=== PATIENT | female | born 1965 ===

== ENCOUNTER 2021-05-08 12:22 | Emergency (ER) | payer SELFPAY ==
[2021-05-08 13:58] VITALS: BP 134/76
--- NOTE | 2021-05-08 17:26 | Emergency Department Report ---
ED Female HPI - General Chief complaint: Vaginal Bleeding Stated complaint: HEAVY BLEEDING Time Seen by Provider: 05/08/21 15:32 Source: patient Mode of arrival: Ambulatory Limitations: No Limitations - History of Present Illness Initial comments: Patient is a 55-year-old female presents emergency room points of vaginal bleeding that began 2 days ago. She states that she is changing her pad every hour. She states that she last saw an HAIR SPECIALIST approximately a year ago. She states that she has a past medical history of fibroids. She states that she went through menopause 4 years ago and has not had any bleeding since then. She denies any fever, nausea, vomiting, diarrhea, dysuria. No other past medical history. No allergies to medications. - Related Data Allergies Allergy/AdvReac Type Severity Reaction Status Date / Time No Known Allergies Allergy Verified 05/08/21 13:57 ED Review of Systems ROS: Stated complaint: HEAVY BLEEDING Other details as noted in HPI Comment: All other systems reviewed and negative ED Physical Exam - General Limitations: No Limitations General appearance: alert, in no apparent distress - Head Head exam: Present: atraumatic, normocephalic - Eye Eye exam: Present: normal appearance - ENT ENT exam: Present: mucous membranes moist - Respiratory Respiratory exam: Present: normal lung sounds bilaterally. Absent: respiratory distress, wheezes, rales, rhonchi, stridor, chest wall tenderness, accessory muscle use, decreased breath sounds, prolonged expiratory - Cardiovascular Cardiovascular Exam: Present: regular rate, normal rhythm, normal heart sounds. Absent: systolic murmur, diastolic murmur, rubs, gallop - GI/Abdominal GI/Abdominal exam: Present: soft, normal bowel sounds. Absent: distended, tenderness, guarding, rebound, rigid - Neurological Exam Neurological exam: Present: alert, oriented X3 - Psychiatric Psychiatric exam: Present: normal affect, normal mood - Skin Skin exam: Present: warm, dry, intact ED Course Vital Signs 05/08/21 13:56 Temperature 98.8 F Pulse Rate 81 Respiratory 18 Rate Blood Pressure 134/76 [Left] O2 Sat by Pulse 100 Oximetry ED Medical Decision Making - Medical Decision Making Patient is a 55-year-old female presents emergency room points of vaginal bleeding that began 2 days ago. She states that she is changing her pad every hour. She states that she last saw an HAIR SPECIALIST approximately a year ago. She states that she has a past medical history of fibroids. She states that she went through menopause 4 years ago and has not had any bleeding since then. She denies any fever, nausea, vomiting, diarrhea, dysuria. No other past medical history. No allergies to medications. Vitals are normal. No abdominal tenderness on exam, no guarding, no rebound, no rigidity, no peritoneal signs. Advised patient that we would order laboratory test and reassess and she would also need HAIR SPECIALIST follow up. Patient was agreeable with plan. Lab attempted to call patient multiple times with no answer. It appears patient has eloped from the emergency department. Critical care attestation.: If time is entered above; I have spent that time in minutes in the direct care of this critically ill patient, excluding procedure time. ED Disposition Clinical Impression: Post-menopausal bleeding Disposition: 07 LEFT AWOL/ELOPED Is pt being admited?: No Does the pt Need Aspirin: No Condition: Undetermined
== END 2021-05-09 12:08 | disposition left against medical advice (07) ==
LOC: ED 12:22
DX: N95.0 Postmenopausal bleeding (principal)
CPT/HCPCS: 99282